=== PATIENT | female | born 1985 | race Caucasian/White ===

== ENCOUNTER 2016-10-03 11:33 | Emergency (ER) | payer BC ==
[~2016-10-03 11:33] MED LIST: ACET50TA PO; COLA100C PO; DOCU10CA PO; IBUP80TA PO; MOM30SS PO; VITAPRTA PO
[2016-10-03] MEDS ORDERED: KETOROLAC 30 MG/ML VIAL (J1885) As Ordered ONE (12:22)
--- NOTE | 2016-10-03 12:59 | REP ---
CT of the brain without IV contrast: Comparison is 05/11/2013. There is no subdural or epidural hematoma. There is no hemorrhage, edema, mass effect or midline shift. Ventricles are normal size and midline. The visualized paranasal sinuses and mastoids are unremarkable. Impression: Negative CT study of the brain. There is no change from the comparison study. Signed by Wilfredo Swanson MD 10/03/2016 12:50 P
--- NOTE | 2016-10-03 13:16 | REP ---
CT CERVICAL SPINE WITHOUT CONTRAST: 10/03/2016. Clinical history: Trauma with neck injury. Findings: A comparison CT neck from 05/10/2014 reviewed. Trauma protocol was followed. There is some loss of the normal cervical lordosis which may be due to spasm or positioning. The dens shows normal relationship between the anterior arch and lateral masses of T1. There is no fracture. Craniocervical junction intact. Disc space and vertebral body heights are intact. No malalignment. No central canal stenosis. Foramina are adequate. The spinous processes, lamina, facets, transverse processes and transverse foramina were intact. Medial clavicles intact. Lung apices and the visualized upper thoracic levels and first two ribs seen were unremarkable. Impression: 1. Straightening of the spine which may be due to spasm or positioning but no spinal or foraminal stenosis, compression, malalignment or other acute finding. Signed by Quinten Iglesias MD 10/03/2016 04:44 P
--- NOTE | 2016-10-03 13:25 | REP ---
RIGHT SCAPULA SERIES COMPLETE: 10/03/2016. Clinical history: Right scapular pain, trauma. Findings: There were no prior pertinent studies. The two views show the acromion and coracoid grossly intact. The AC joint and clavicle unremarkable. The glenohumeral joint and humeral head were preserved. The scapular body and blade were unremarkable. Impression: 1. No visible or displaced fracture of the scapula. AC and glenohumeral joints grossly intact as are the adjacent ribs. Signed by Quinten Iglesias MD 10/03/2016 04:45 P
--- NOTE | 2016-10-03 13:54 | EDDOCDS ---
Physician Documentation [facility] Name: Rosibel Jackson Age: 31 yrs Sex: Female : 1985 Arrival Date: 10/03/2016 Time: 11:33 Bed PR Private MD: No Pcp Disposition: 10/03/16 13:39 Discharged to Home/Self Care. Impression: Contusion of right shoulder - SCAPULA, Concussion without loss of consciousness. - Condition is Stable. - Discharge Instructions: Concussion, Adult. - Prescriptions for Naprosyn 500 mg Oral Tablet - take 1 tablet by ORAL route every 12 hours As needed take with food; 30 tablet. Cyclobenzaprine 10 mg Oral Tablet - take 1 tablet by ORAL route at bedtime As needed; 15 tablet. - Work Release Form - 1 day, Medication Reconciliation, Local Pharmacy Hours form. - Follow up: Emergency Department; When: As needed; Reason: Worsening of conditions. [facility]; When: Call to arrange an appointment; Reason: Recheck today's complaints, Continuance of care, To establish care. - Problem is new. - Symptoms are unchanged. Historical: - Allergies: PENICILLINS; - Home Meds: 1. Vitamin Oral tab 1 tab once daily - PMHx: none; - PSHx: Cholecystectomy; Appendectomy; - Social history: Smoking status: Patient states former smoker of tobacco. No barriers to communication noted, The patient speaks fluent [place] Zealander, Speaks appropriately for age. - Family history: Not pertinent. - : The pt / caregiver states he / she is not on anticoagulants. Home medication list is obtained from the patient. - Exposure Risk Screening:: None identified. 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 4 in. (162.56 cm) (R); Pain 5/10; 13:45 BP 114 / 61; Pulse 67; Resp 18; Temp 97.7(T); Pulse Ox 97% on R/A; Pain 6/10; nb2 11:36 Body Mass Index 29.18 (77.11 kg, 162.56 cm) jrd MDM: 12:21 ketorolac 60 mg IM once ordered. dt4 12:23 Scapula X-Ray Ordered. EDMS 12:23 CT Head Without Contrast Ordered. EDMS 12:23 CT Spine,Cervical W/o Contrast Ordered. EDMS 12:28 Financial registration complete. mm15 Administered Medications: 12:26 Drug: ketorolac 60 mg [ketorolac 30 mg/mL (1 mL) injection solution (2 mL)] Route: IM; ck1 Site: right gluteus; Signatures: Dispatcher [employer] EDMS Melissa PittmanRN RN ck1 Tanya Nation RN RN jo3 Yeny Gilbert mm15 Chiara Dale PA-C PA-C dt4 Albert Silver,RN RN jf3 The chart was reviewed and I authenticate all verbal orders and agree with the evaluation and treatment provided.Corrections: (The following items were deleted from the chart) 11:43 11:43 Social history Smoking status: Patient states was never smoker of tobacco. No jo3 barriers to communication noted, The patient speaks fluent [place], Speaks appropriately for age, jo3 MTDD
--- NOTE | 2016-10-03 13:55 | EDDOCDS ---
Nurse's Notes [facility] Name: Rosibel Jackson Age: 31 yrs Sex: Female : 1985 Arrival Date: 10/03/2016 Time: 11:33 Bed PR Private MD: No Pcp Diagnosis: Contusion of right shoulder-SCAPULA;Concussion without loss of consciousness Presentation: 10/03 11:40 Presenting complaint: Patient states: Mechanical fall in the middle of the night. Has jo3 pain to right shoulder and lateral neck bilaterally. Denies spine tenderness. Adult Sepsis Screening: The patient does not have new or worsening altered mentation. Patient's respiratory rate is less than 22. Systolic blood pressure is greater than 100. Patient has a qSOFA score of 0- Negative Sepsis Screen. Suicide/Homicide risk assessment- the patient denies having any suicidal and/or homicidal ideations and does not present with any other emotional, behavioral or mental health complaints. Status: Patient is not a sales and service associate or dependent. Transition of care: patient was not received from another setting of care. 11:40 Acuity: SÁNCHEZ Level 4 jo3 11:40 Method Of Arrival: Walkin/Carried/Asstd jo3 Triage Assessment: 11:43 General: Appears in no apparent distress, comfortable, Behavior is appropriate for age, jo3 cooperative, pleasant. HIV screening NA for this visit Offered previously. Neurological: Oriented to person, place, time. Respiratory: Airway is patent Respiratory effort is even, unlabored. Derm: Skin is pink, warm & dry. 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 Vitamin Oral tab 1 tab once daily - PMHx: none; - PSHx: Cholecystectomy; Appendectomy; - Social history: Smoking status: Patient states former smoker of tobacco. No barriers to communication noted, The patient speaks fluent Nigerian, Speaks appropriately for age. - Family history: Not pertinent. - : The pt / caregiver states he / she is not on anticoagulants. Home medication list is obtained from the patient. - Exposure Risk Screening:: None identified. Screenin:29 Screening information is obtained from the patient. Fall risk: No risks identified. ck1 Assistance ADL's: requires no assistance with activities of daily living. Abuse/DV Screen: The patient / caregiver reports he/she is: not in a situation that causes fear, pain or injury. Nutritional screening: No deficits noted. Advance Directives: Currently, there is no health care proxy. home support is adequate. Assessment: 12:29 General: Appears in no apparent distress, comfortable, Behavior is appropriate for age, ck1 cooperative. Pain: Location: right trapezius and right scapular area Pain currently is 9 out of 10 on a pain scale. Neurological: Level of Consciousness is awake, alert, obeys commands, Oriented to person, place, time. Derm: Skin is intact, is healthy with good turgor, Skin is pink, warm & dry. Musculoskeletal: Circulation, motion, and sensation intact Range of motion intact in all extremities. 13:50 General: Appears in no apparent distress, comfortable, Behavior is cooperative. Pain: jf3 Pain currently is 6 out of 10 on a pain scale. Neurological: Level of Consciousness is awake, alert, Oriented to person, place, time. Cardiovascular: Capillary refill < 3 seconds. Respiratory: Airway is patent Respiratory effort is even, unlabored, Respiratory pattern is regular, symmetrical. Derm: Skin is pink, warm & dry. Vital Signs: 11:36 BP 126 / 70 RA Sitting (auto/reg); Pulse 73; Resp 16; Temp 99.0(O); Pulse Ox 98% on jrd R/A; Weight 77.11 kg (R); Height 5 ft. 4 in. (162.56 cm) (R); Pain 5/10; 13:45 BP 114 / 61; Pulse 67; Resp 18; Temp 97.7(T); Pulse Ox 97% on R/A; Pain 6/10; nb2 11:36 Body Mass Index 29.18 (77.11 kg, 162.56 cm) [facility] Vitals: 11:36 Log In Time: October 03, 2016 at 11:13. [facility] ED Course: 11:35 Patient visited by Jeet Moffett PCA. jrd 11:35 Patient moved to Waiting jrd 11:36 No Pcp is Private Physician. jrd 11:37 Patient visited by Jeet Moffett PCA. jrd 11:37 Patient moved to Pre RCE jrd 11:42 Triage Initiated jo3 11:45 Patient visited by Tanya Nation RN. jo3 11:58 Patient moved to Triage 3 nb2 12:06 [facility] dt4 12:06 Sukhdeep Allison MD is Attending Physician. dt4 12:06 Patient visited by Chiara Dale PA-C. dt4 12:26 Patient visited by Melissa Pittman RN. ck1 12:26 Patient moved to TR2 ck1 12:30 The patient / caregiver is instructed regarding the plan of care and ED course. ck1 13:21 CT Head Without Contrast Returned. EDMS 13:21 CT Spine,Cervical W/o Contrast Returned. EDMS 13:28 Patient moved to PR2 / nb2 13:32 Patient visited by Alis Madera. nb2 13:37 [facility] is Referral Physician. dt4 13:45 Patient visited by Alis Madera. nb2 13:50 No IV's were initiated during this patient's visit. No procedures done that require jf3 assistance. Administered Medications: 12:26 Drug: ketorolac 60 mg [ketorolac 30 mg/mL (1 mL) injection solution (2 mL)] Route: IM; ck1 Site: right gluteus; Order Results: Radiology Order: CT Head Without Contrast Test: CT Head Without Contrast REASON FOR EXAMINATION: HEAD INJURY; CT of the brain without IV contrast:; ; Comparison is 05/11/2013.; ; There is no subdural or epidural hematoma. There is no hemorrhage, edema, mass; effect or midline shift. Ventricles are normal size and midline.; ; The visualized paranasal sinuses and mastoids are unremarkable.; ; Impression:; ; Negative CT study of the brain.; ; There is no change from the comparison study.; ; ; Signed by; Wilfredo Swanson MD 10/03/2016 12:50 P; Radiology Order: CT Spine,Cervical W/o Contrast Test: CT Spine,Cervical W/o Contrast REASON FOR EXAMINATION: HEAD/NECK INJURY; CT CERVICAL SPINE WITHOUT CONTRAST: 10/03/2016.; ; Clinical history: Trauma with neck injury.; ; Findings: A comparison CT neck from 05/10/2014 reviewed. Trauma protocol was; followed. There is some loss of the normal cervical lordosis which may be due to; spasm or positioning. The dens shows normal relationship between the anterior; arch and lateral masses of T1. There is no fracture. Craniocervical junction; intact. Disc space and vertebral body heights are intact. No malalignment. No; central canal stenosis. Foramina are adequate. The spinous processes, lamina,; facets, transverse processes and transverse foramina were intact. Medial; clavicles intact. Lung apices and the visualized upper thoracic levels and first; two ribs seen were unremarkable.; ; Impression:; ; 1. Straightening of the spine which may be due to spasm or positioning but no; spinal or foraminal stenosis, compression, malalignment or other acute finding.; ; ; ; ; ; ; Unreviewed; Outcome: 13:39 Discharge ordered by Provider. dt4 13:51 Discharge Assessment: patient administered narcotics - no. The following High Risk jf3 Discharge criteria are identified: None. Discharged to home ambulatory. Condition: good. Discharge instructions given to patient, Instructed on discharge instructions, follow up and referral plans. medication usage, no driving heavy equipment, Demonstrated understanding of instructions, medications, Pt was receptive of discharge instructions/ teaching. No special radiology studies were completed. Property :Personal belongings accompany Pt. 13:53 Patient left the ED. jf3 Signatures: Dispatcher [employer] EDMS Melissa PittmanRN RN ck1 Tanya NationRN RN la3 Chiara Dale, PALiana PAMegC dt4 Jeet Moffett, MARCK MANAGER OF OPERATIONS Albert Wilburn,RN RN jf3 Alis Madera nb2 Corrections: (The following items were deleted from the chart) 11:43 11:43 Social history Smoking status: Patient states was never smoker of tobacco. No jo3 barriers to communication noted, The patient speaks fluent Nigerian, Speaks appropriately for age, jo3 MTDD
--- NOTE | 2016-10-05 14:55 | EDDOCDS ---
Nurse's Notes [facility] Name: Rosibel Jackson Age: 31 yrs Sex: Female : 1985 Arrival Date: 10/03/2016 Time: 11:33 Bed PR Private MD: No Pcp Diagnosis: Contusion of right shoulder-SCAPULA;Concussion without loss of consciousness Presentation: 10/03 11:40 Presenting complaint: Patient states: Mechanical fall in the middle of the night. Has jo3 pain to right shoulder and lateral neck bilaterally. Denies spine tenderness. Adult Sepsis Screening: The patient does not have new or worsening altered mentation. Patient's respiratory rate is less than 22. Systolic blood pressure is greater than 100. Patient has a qSOFA score of 0- Negative Sepsis Screen. Suicide/Homicide risk assessment- the patient denies having any suicidal and/or homicidal ideations and does not present with any other emotional, behavioral or mental health complaints. 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 Transition of care: patient was not received from another setting of care. 11:40 Acuity: SÁNCHEZ Level 4 jo3 11:40 Method Of Arrival: Walkin/Carried/Asstd jo3 Triage Assessment: 11:43 General: Appears in no apparent distress, comfortable, Behavior is appropriate for age, jo3 cooperative, pleasant. HIV screening NA for this visit Offered previously. Neurological: Oriented to person, place, time. Respiratory: Airway is patent Respiratory effort is even, unlabored. Derm: Skin is pink, warm & dry. 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 Vitamin Oral tab 1 tab once daily - PMHx: none; - PSHx: Cholecystectomy; Appendectomy; - Social history: Smoking status: Patient states former smoker of tobacco. No barriers to communication noted, The patient speaks fluent Welsh, Speaks appropriately for age. - Family history: Not pertinent. - : The pt / caregiver states he / she is not on anticoagulants. Home medication list is obtained from the patient. - Exposure Risk Screening:: None identified. Screenin:29 Screening information is obtained from the patient. Fall risk: No risks identified. ck1 Assistance ADL's: requires no assistance with activities of daily living. Abuse/DV Screen: The patient / caregiver reports he/she is: not in a situation that causes fear, pain or injury. Nutritional screening: No deficits noted. Advance Directives: Currently, there is no health care proxy. home support is adequate. Assessment: 12:29 General: Appears in no apparent distress, comfortable, Behavior is appropriate for age, ck1 cooperative. Pain: Location: right trapezius and right scapular area Pain currently is 9 out of 10 on a pain scale. Neurological: Level of Consciousness is awake, alert, obeys commands, Oriented to person, place, time. Derm: Skin is intact, is healthy with good turgor, Skin is pink, warm & dry. Musculoskeletal: Circulation, motion, and sensation intact Range of motion intact in all extremities. 13:50 General: Appears in no apparent distress, comfortable, Behavior is cooperative. Pain: jf3 Pain currently is 6 out of 10 on a pain scale. Neurological: Level of Consciousness is awake, alert, Oriented to person, place, time. Cardiovascular: Capillary refill < 3 seconds. Respiratory: Airway is patent Respiratory effort is even, unlabored, Respiratory pattern is regular, symmetrical. Derm: Skin is pink, warm & dry. Vital Signs: 11:36 BP 126 / 70 RA Sitting (auto/reg); Pulse 73; Resp 16; Temp 99.0(O); Pulse Ox 98% on jrd R/A; Weight 77.11 kg (R); Height 5 ft. 4 in. (162.56 cm) (R); Pain 5/10; 13:45 BP 114 / 61; Pulse 67; Resp 18; Temp 97.7(T); Pulse Ox 97% on R/A; Pain 6/10; nb2 11:36 Body Mass Index 29.18 (77.11 kg, 162.56 cm) [facility] Vitals: 11:36 Log In Time: October 03, 2016 at 11:13. [facility] ED Course: 11:35 Patient visited by Jeet Moffett PCA. jrd 11:35 Patient moved to Waiting jrd 11:36 No Pcp is Private Physician. jrd 11:37 Patient visited by Jeet Moffett PCA. jrd 11:37 Patient moved to Pre RCE jrd 11:42 Triage Initiated jo3 11:45 Patient visited by Tanya Nation RN. jo3 11:58 Patient moved to Triage 3 nb2 12:06 Chiara Dale PA-C [facility]. dt4 12:06 Sukhdeep Allison MD is Attending Physician. dt4 12:06 Patient visited by Chiara Dale PA-C. dt4 12:26 Patient visited by Melissa Pittman RN. ck1 12:26 Patient moved to TR2 ck1 12:30 The patient / caregiver is instructed regarding the plan of care and ED course. ck1 13:21 CT Head Without Contrast Returned. EDMS 13:21 CT Spine,Cervical W/o Contrast Returned. EDMS 13:28 Patient moved to PR2 / nb2 13:32 Patient visited by Alis Madera. nb2 13:37 [facility] is Referral Physician. dt4 13:45 Patient visited by Alis Madera. nb2 13:50 No IV's were initiated during this patient's visit. No procedures done that require jf3 assistance. 14:15 [facility] Payment Agreement was scanned into [employer] and attached to record. mm15 14:18 Scapula X-Ray Returned. EDMS 14:55 T-Sheet-- Draft Copy was scanned into [employer] and attached to record. gb 14:55 Radiology Report was scanned into [employer] and attached to record. gb 14:56 Patient name changed from Rosibel\S\\S\Benthal\S\ to Rosibel\S\ \S\Benthal. EDMS Administered Medications: 12:26 Drug: ketorolac 60 mg [ketorolac 30 mg/mL (1 mL) injection solution (2 mL)] Route: IM; ck1 Site: right gluteus; Order Results: Radiology Order: CT Head Without Contrast Test: CT Head Without Contrast REASON FOR EXAMINATION: HEAD INJURY; CT of the brain without IV contrast:; ; Comparison is 05/11/2013.; ; There is no subdural or epidural hematoma. There is no hemorrhage, edema, mass; effect or midline shift. Ventricles are normal size and midline.; ; The visualized paranasal sinuses and mastoids are unremarkable.; ; Impression:; ; Negative CT study of the brain.; ; There is no change from the comparison study.; ; ; Signed by; Wilfredo Swanson MD 10/03/2016 12:50 P; Radiology Order: CT Spine,Cervical W/o Contrast Test: CT Spine,Cervical W/o Contrast REASON FOR EXAMINATION: HEAD/NECK INJURY; CT CERVICAL SPINE WITHOUT CONTRAST: 10/03/2016.; ; Clinical history: Trauma with neck injury.; ; Findings: A comparison CT neck from 05/10/2014 reviewed. Trauma protocol was; followed. There is some loss of the normal cervical lordosis which may be due to; spasm or positioning. The dens shows normal relationship between the anterior; arch and lateral masses of T1. There is no fracture. Craniocervical junction; intact. Disc space and vertebral body heights are intact. No malalignment. No; central canal stenosis. Foramina are adequate. The spinous processes, lamina,; facets, transverse processes and transverse foramina were intact. Medial; clavicles intact. Lung apices and the visualized upper thoracic levels and first; two ribs seen were unremarkable.; ; Impression:; ; 1. Straightening of the spine which may be due to spasm or positioning but no; spinal or foraminal stenosis, compression, malalignment or other acute finding.; ; ; ; ; Signed by; Quinten Iglesias MD 10/03/2016 04:44 P; Radiology Order: Scapula X-Ray Test: Scapula X-Ray REASON FOR EXAMINATION: RIGHT SCAPULAR PAIN/INJURY; RIGHT SCAPULA SERIES COMPLETE: 10/03/2016.; ; Clinical history: Right scapular pain, trauma.; ; Findings: There were no prior pertinent studies. The two views show the; acromion and coracoid grossly intact. The AC joint and clavicle unremarkable.; The glenohumeral joint and humeral head were preserved. The scapular body and; blade were unremarkable.; ; Impression:; ; 1. No visible or displaced fracture of the scapula. AC and glenohumeral joints; grossly intact as are the adjacent ribs.; ; ; Signed by; Quinten Iglesias MD 10/03/2016 04:45 P; Outcome: 13:39 Discharge ordered by Provider. dt4 13:51 Discharge Assessment: patient administered narcotics - no. The following High Risk jf3 Discharge criteria are identified: None. Discharged to home ambulatory. Condition: good. Discharge instructions given to patient, Instructed on discharge instructions, follow up and referral plans. medication usage, no driving heavy equipment, Demonstrated understanding of instructions, medications, Pt was receptive of discharge instructions/ teaching. No special radiology studies were completed. Property :Personal belongings accompany Pt. 13:53 Patient left the ED. jf3 Signatures: Dispatcher [employer] EDMS Shandra Finley, Reg Reg Melissa Blanco,RN RN ck1 Tanya Nation,RN RN jo3 Yeny Gilbert mm15 Chiara Dale, PA-C PA-C dt4 Jeet Moffett PCA GEAR GENERATOR SET UP OPERATOR d Albert Silver,LORNA RN gerard3 Alis Madera2 Corrections: (The following items were deleted from the chart) 11:43 11:43 Social history Smoking status: Patient states was never smoker of tobacco. No jo3 barriers to communication noted, The patient speaks fluent Welsh, Speaks appropriately for age, jo3 Chart Complete MTDD
--- NOTE | 2016-10-05 14:55 | EDDOCDS ---
Physician Documentation [facility] Name: Rosibel Jackson Age: 31 yrs Sex: Female : 1985 Arrival Date: 10/03/2016 Time: 11:33 Bed PR Private MD: No Pcp Disposition: 10/03/16 13:39 Discharged to Home/Self Care. Impression: Contusion of right shoulder - SCAPULA, Concussion without loss of consciousness. - Condition is Stable. - Discharge Instructions: Concussion, Adult. - Prescriptions for Naprosyn 500 mg Oral Tablet - take 1 tablet by ORAL route every 12 hours As needed take with food; 30 tablet. Cyclobenzaprine 10 mg Oral Tablet - take 1 tablet by ORAL route at bedtime As needed; 15 tablet. - Work Release Form - 1 day, Medication Reconciliation, Local Pharmacy Hours form. - Follow up: Emergency Department; When: As needed; Reason: Worsening of conditions. Follow [facility]: [facility]; When: Call to arrange an appointment; Reason: Recheck today's complaints, Continuance of care, To establish care. - Problem is new. - Symptoms are unchanged. Historical: - Allergies: PENICILLINS; - Home Meds: 1. Vitamin Oral tab 1 tab once daily - PMHx: none; - PSHx: Cholecystectomy; Appendectomy; - Social history: Smoking status: Patient states former smoker of tobacco. No barriers to communication noted, The patient speaks fluent Japanese, Speaks appropriately for age. - Family history: Not pertinent. - : The pt / caregiver states he / she is not on anticoagulants. Home medication list is obtained from the patient. - Exposure Risk Screening:: None identified. 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 4 in. (162.56 cm) (R); Pain 5/10; 13:45 BP 114 / 61; Pulse 67; Resp 18; Temp 97.7(T); Pulse Ox 97% on R/A; Pain 6/10; nb2 11:36 Body Mass Index 29.18 (77.11 kg, 162.56 cm) jrd MDM: 12:21 ketorolac 60 mg IM once ordered. dt4 12:23 Scapula X-Ray Ordered. EDMS 12:23 CT Head Without Contrast Ordered. EDMS 12:23 CT Spine,Cervical W/o Contrast Ordered. EDMS 12:28 Financial registration complete. mm15 14:15 [facility] Payment Agreement was scanned into [employer] and attached to record. mm15 14:55 T-Sheet-- Draft Copy was scanned into [employer] and attached to record. gb 14:55 Radiology Report was scanned into [employer] and attached to record. gb Administered Medications: 12:26 Drug: ketorolac 60 mg [ketorolac 30 mg/mL (1 mL) injection solution (2 mL)] Route: IM; ck1 Site: right gluteus; Signatures: Dispatcher [employer] EDMS Shandra Finley, Reg Reg gb Melissa Pittman RN RN ck1 Tanya Nation RN RN jo3 Yeny Gilbert mm15 Chiara Dale, PA-Luiza PA-C dt4 Albert Silver,RN RN jf3 The chart was reviewed and I authenticate all verbal orders and agree with the evaluation and treatment provided.Corrections: (The following items were deleted from the chart) 11:43 11:43 Social history Smoking status: Patient states was never smoker of tobacco. No jo3 barriers to communication noted, The patient speaks fluent Japanese, Speaks appropriately for age, jo3 Attachments: :15 [facility] Payment Agreement mm15 14:55 T-Sheet-- Draft Copy gb Chart Complete MTDD
--- NOTE | 2016-10-05 14:55 | EDDOCDS ---
Physician Documentation [facility] Name: Rosibel Jackson Age: 31 yrs Sex: Female : 1985 Arrival Date: 10/03/2016 Time: 11:33 Bed PR Private MD: No Pcp Disposition: 10/03/16 13:39 Discharged to Home/Self Care. Impression: Contusion of right shoulder - SCAPULA, Concussion without loss of consciousness. - Condition is Stable. - Discharge Instructions: Concussion, Adult. - Prescriptions for Naprosyn 500 mg Oral Tablet - take 1 tablet by ORAL route every 12 hours As needed take with food; 30 tablet. Cyclobenzaprine 10 mg Oral Tablet - take 1 tablet by ORAL route at bedtime As needed; 15 tablet. - Work Release Form - 1 day, Medication Reconciliation, Local Pharmacy Hours form. - Follow up: Emergency Department; When: As needed; Reason: Worsening of conditions. Follow up: [facility]; When: Call to arrange an appointment; Reason: Recheck today's complaints, Continuance of care, To establish care. - Problem is new. - Symptoms are unchanged. Historical: - Allergies: PENICILLINS; - Home Meds: 1. Vitamin Oral tab 1 tab once daily - PMHx: none; - PSHx: Cholecystectomy; Appendectomy; - Social history: Smoking status: Patient states former smoker of tobacco. No barriers to communication noted, The patient speaks fluent Malawian, Speaks appropriately for age. - Family history: Not pertinent. - : The pt / caregiver states he / she is not on anticoagulants. Home medication list is obtained from the patient. - Exposure Risk Screening:: None identified. 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 4 in. (162.56 cm) (R); Pain 5/10; 13:45 BP 114 / 61; Pulse 67; Resp 18; Temp 97.7(T); Pulse Ox 97% on R/A; Pain 6/10; nb2 11:36 Body Mass Index 29.18 (77.11 kg, 162.56 cm) jrd MDM: 12:21 ketorolac 60 mg IM once ordered. dt4 12:23 Scapula X-Ray Ordered. EDMS 12:23 CT Head Without Contrast Ordered. EDMS 12:23 CT Spine,Cervical W/o Contrast Ordered. EDMS 12:28 Financial registration complete. mm15 14:15 [facility] Payment Agreement was scanned into [employer] and attached to record. mm15 14:55 T-Sheet-- Draft Copy was scanned into [employer] and attached to record. gb 14:55 Radiology Report was scanned into [employer] and attached to record. gb Administered Medications: 12:26 Drug: ketorolac 60 mg [ketorolac 30 mg/mL (1 mL) injection solution (2 mL)] Route: IM; ck1 Site: right gluteus; Signatures: Dispatcher [employer] EDMS Shandra Finley, Reg Reg gb Melissa Pittman RN RN ck1 Tanya Nation RN RN jo3 Yeny Gilbert mm15 Chiara Dale, PA-Luiza PA-C dt4 Albert Silver,RN RN jf3 The chart was reviewed and I authenticate all verbal orders and agree with the evaluation and treatment provided.Corrections: (The following items were deleted from the chart) 11:43 11:43 Social history Smoking status: Patient states was never smoker of tobacco. No jo3 barriers to communication noted, The patient speaks fluent Malawian, Speaks appropriately for age, jo3 Attachments: :15 [facility] Payment Agreement mm15 14:55 T-Sheet-- Draft Copy gb Chart Complete MTDD
== END 2016-10-03 13:53 | disposition home or self-care (01) ==
LOC: M ED 11:33
DX: S40.011A Contusion of right shoulder, initial encounter (principal); S16.1XXA Strain of muscle, fascia and tendon at neck level, initial encounter; S06.0X0A Concussion without loss of consciousness, initial encounter; W19.XXXA Unspecified fall, initial encounter; Y92.89 Other specified places as the place of occurrence of the external cause; Y93.F9 Activity, other caregiving; Y99.8 Other external cause status; Z87.891 Personal history of nicotine dependence; Z88.0 Allergy status to penicillin
CPT/HCPCS: 70450; 72125; 73010; 96372; 99283; J1885

== ENCOUNTER 2016-10-19 15:42 | Emergency (ER) | payer BC ==
--- NOTE | 2016-10-19 16:40 | EDDOCDS ---
Nurse's Notes [facility] Name: Rosibel Jackson Age: 31 yrs Sex: Female : 1985 Arrival Date: 10/19/2016 Time: 15:42 Bed Triage 3 Private MD: NO PRIMARY PHYSICIAN, . Diagnosis: Labyrinthitis, bilateral;Acute serous otitis media, bilateral Presentation: 10/19 15:48 Presenting complaint: Patient states: Was at [facility] for regular visit today. Was ld5 discussing symptoms she was having with MD and was told to come to ER as soon as possible to be checked for vertigo. Pt reports dizziness, vomiting, "I feel intoxicated", and pressure to forehead since Saturday. Pt reports being here 2 weeks ago for a concussion. Adult Sepsis Screening: The patient does not have new or worsening altered mentation. Patient's respiratory rate is less than 22. Systolic blood pressure is greater than 100. Patient has a qSOFA score of 0- Negative Sepsis Screen. 15:48 Acuity: SÁNCHEZ Level 3 ld5 15:50 Suicide/Homicide risk assessment- the patient denies having any suicidal and/or ld5 homicidal ideations and does not present with any other emotional, behavioral or mental health complaints. Status: Patient is not a furniture servicer or dependent. Transition of care: patient was not received from another setting of care. 15:50 Method Of Arrival: Walkin/Carried/Asstd ld5 Triage Assessment: 15:51 General: Appears in no apparent distress, Behavior is cooperative, flat. Pain: ld5 Location: forehead Quality of pain is described as pressure. HIV screening NA for this visit Offered previously. Neurological: Level of Consciousness is awake, obeys commands, Reports dizziness. Respiratory: Airway is patent Respiratory effort is even, unlabored. GI: Reports nausea, vomiting. [facility]: 15:51 LMP N/A - control method, Mirena placed September 06, has had period since then ld5 Historical: - Allergies: PENICILLINS; - Home Meds: 1. none - PMHx: none; - PSHx: Cholecystectomy; Appendectomy; - Social history: Smoking status: Patient states former smoker of tobacco. No barriers to communication noted, The patient speaks fluent Persian, Speaks appropriately for age. - Family history: Not pertinent. - : The pt / caregiver states he / she is not on anticoagulants. Home medication list is obtained from the patient. - Exposure Risk Screening:: None identified. Screenin:49 Infection Control. gr2 16:38 Screening information is obtained from the patient. Fall risk: No risks identified. ttb Assistance ADL's: requires no assistance with activities of daily living. Abuse/DV Screen: The patient / caregiver reports he/she is: not in a situation that causes fear, pain or injury. Nutritional screening: No deficits noted. Advance Directives: Currently, there is no health care proxy. home support is adequate. Assessment: 16:38 General: Appears in no apparent distress, uncomfortable, well nourished, well groomed, ttb Behavior is appropriate for age, cooperative, pleasant. Neurological: Level of Consciousness is awake, alert, Moves all extremities. Gait is steady, Speech is normal, Facial symmetry appears normal, Reports dizziness. Respiratory: No deficits noted. Airway is patent. GI: Reports nausea, vomiting. Derm: Skin is normal. Vital Signs: 15:44 BP 111 / 74; Pulse 92; Resp 18 S; Temp 97.1(O); Pulse Ox 99% on R/A; Weight 78.02 kg gr2 (R); Height 5 ft. 4 in. (162.56 cm) (R); Pain 2/10; 15:44 Body Mass Index 29.52 (78.02 kg, 162.56 cm) gr2 Vitals: 15:44 Log In Time: October 19, 2016 at 15:44. gr2 ED Course: 15:44 Patient visited by Bibiana Blanc. gr2 15:44 Radha [facility] is Private Physician. gr2 15:44 NO PRIMARY PHYSICIAN, . is Private Physician. gr2 15:44 Patient moved to Waiting gr2 15:46 Patient visited by Bibiana Blanc. gr2 15:46 Patient moved to Pre RCE gr2 15:49 Patient visited by Bibiana Blanc. gr2 15:50 Triage Initiated ld5 15:52 Patient visited by Cate Mckeon RN. ld5 16:02 Patient moved to Triage 3 ttb 16:05 Randy Goode PA is PHCP. btw 16:05 Chandrika Pena MD is Attending Physician. btw 16:05 Patient visited by Randy Goode PA. btw 16:31 Kristine Anderson MD is Referral Physician. btw 16:38 The patient / caregiver is instructed regarding the plan of care and ED course. Patient ttb has correct armband on for positive identification. 16:38 No IV's were initiated during this patient's visit. No procedures done that require ttb assistance. Order Results: There are currently no results for this order. Outcome: 16:32 Discharge ordered by Provider. btw 16:38 Discharge Assessment: Patient awake, alert and oriented x 3. No cognitive and/or ttb functional deficits noted. Patient verbalized understanding of disposition instructions. Patient awake and alert. patient administered narcotics - no. The following High Risk Discharge criteria are identified: None. Discharged to home ambulatory. Condition: stable Condition: improved. Discharge instructions given to patient, Instructed on discharge instructions, follow up and referral plans. medication usage, Demonstrated understanding of instructions, medications, Pt was receptive of discharge instructions/ teaching. Prescriptions given X 2. No special radiology studies were completed. Property :Personal belongings accompany Pt. 16:39 Patient left the ED. ttb Signatures: Randy Goode PA PA btw Cate Mckeon,RN RN ld5 Pepper Hancock RN RN ttb Bibiana Blanc gr2 Corrections: (The following items were deleted from the chart) 15:50 15:48 Presenting complaint: Patient states: Was at [facility] for regular visit today. Was ld5 discussing symptoms she was having with MD and was told to come to ER as soon as possible to be checked for vertigo. Pt reports dizziness, vomiting, "I feel intoxicated", and pressure to forehead since Saturday ld5 MTDD
--- NOTE | 2016-10-19 16:40 | EDDOCDS ---
Physician Documentation [facility] Name: Rosibel Jackson Age: 31 yrs Sex: Female : 1985 Arrival Date: 10/19/2016 Time: 15:42 Bed Triage 3 Private MD: NO PRIMARY PHYSICIAN, . Disposition: 10/19/16 16:32 Discharged to Home/Self Care. Impression: Labyrinthitis, bilateral, Acute serous otitis media, bilateral. - Condition is Stable. - Discharge Instructions: Serous Otitis Media, Labyrinthitis, [id number]. - Prescriptions for Medrol (Arturo) 4 mg Oral Tablets, Dose Pack - take 1 Pack by ORAL route as directed - follow package instructions; 1 packet. azelastine 137 mcg (0.1 %) Nasal Aerosol, [place] - spray 2 spray by INTRANASAL route 2 times per day each nostril; 1 bottle. - Medication Reconciliation, Local Pharmacy Hours form. - Follow up: Kristine Anderson MD; When: Call to arrange an appointment; Reason: Further diagnostic work-up, Recheck today's complaints, Continuance of care. - Problem is new. - Symptoms are unchanged. Historical: - Allergies: PENICILLINS; - Home Meds: 1. none - PMHx: none; - PSHx: Cholecystectomy; Appendectomy; - Social history: Smoking status: Patient states former smoker of tobacco. No barriers to communication noted, The patient speaks fluent Wolof, Speaks appropriately for age. - Family history: Not pertinent. - : The pt / caregiver states he / she is not on anticoagulants. Home medication list is obtained from the patient. - Exposure Risk Screening:: None identified. 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 4 in. (162.56 cm) (R); Pain 2/10; 15:44 Body Mass Index 29.52 (78.02 kg, 162.56 cm) gr2 Signatures: Randy oGode PA PA chazw Cate Mckeon,RN RN ld5 Pepper Hancock, RN RN ttb CARRINGTOND
--- NOTE | 2016-10-21 17:40 | EDDOCDS ---
Nurse's Notes [facility] Name: Rosibel Jackson Age: 31 yrs Sex: Female : 1985 Arrival Date: 10/19/2016 Time: 15:42 Bed Triage 3 Private MD: NO PRIMARY PHYSICIAN, . Diagnosis: Labyrinthitis, bilateral;Acute serous otitis media, bilateral Presentation: 10/19 15:48 Presenting complaint: Patient states: Was at [facility] for regular visit today. Was ld5 discussing symptoms she was having with MD and was told to come to ER as soon as possible to be checked for vertigo. Pt reports dizziness, vomiting, "I feel intoxicated", and pressure to forehead since Saturday. Pt reports being here 2 weeks ago for a concussion. Adult Sepsis Screening: The patient does not have new or worsening altered mentation. Patient's respiratory rate is less than 22. Systolic blood pressure is greater than 100. Patient has a qSOFA score of 0- Negative Sepsis Screen. 15:48 Acuity: SÁNCHEZ Level 3 ld5 15:50 Suicide/Homicide risk assessment- the patient denies having any suicidal and/or ld5 homicidal ideations and does not present with any other emotional, behavioral or mental health complaints. 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 Transition of care: patient was not received from another setting of care. 15:50 Method Of Arrival: Walkin/Carried/Asstd ld5 Triage Assessment: 15:51 General: Appears in no apparent distress, Behavior is cooperative, flat. Pain: ld5 Location: forehead Quality of pain is described as pressure. HIV screening NA for this visit Offered previously. Neurological: Level of Consciousness is awake, obeys commands, Reports dizziness. Respiratory: Airway is patent Respiratory effort is even, unlabored. GI: Reports nausea, vomiting. [facility]: 15:51 LMP N/A - control method, Mirena placed September 06, has had period since then ld5 Historical: - Allergies: PENICILLINS; - Home Meds: 1. none - PMHx: none; - PSHx: Cholecystectomy; Appendectomy; - Social history: Smoking status: Patient states former smoker of tobacco. No barriers to communication noted, The patient speaks fluent Kyrgyz, Speaks appropriately for age. - Family history: Not pertinent. - : The pt / caregiver states he / she is not on anticoagulants. Home medication list is obtained from the patient. - Exposure Risk Screening:: None identified. Screenin:49 Infection Control. gr2 16:38 Screening information is obtained from the patient. Fall risk: No risks identified. ttb Assistance ADL's: requires no assistance with activities of daily living. Abuse/DV Screen: The patient / caregiver reports he/she is: not in a situation that causes fear, pain or injury. Nutritional screening: No deficits noted. Advance Directives: Currently, there is no health care proxy. home support is adequate. Assessment: 16:38 General: Appears in no apparent distress, uncomfortable, well nourished, well groomed, ttb Behavior is appropriate for age, cooperative, pleasant. Neurological: Level of Consciousness is awake, alert, Moves all extremities. Gait is steady, Speech is normal, Facial symmetry appears normal, Reports dizziness. Respiratory: No deficits noted. Airway is patent. GI: Reports nausea, vomiting. Derm: Skin is normal. Vital Signs: 15:44 BP 111 / 74; Pulse 92; Resp 18 S; Temp 97.1(O); Pulse Ox 99% on R/A; Weight 78.02 kg gr2 (R); Height 5 ft. 4 in. (162.56 cm) (R); Pain 2/10; 15:44 Body Mass Index 29.52 (78.02 kg, 162.56 cm) gr2 Vitals: 15:44 Log In Time: October 19, 2016 at 15:44. gr2 ED Course: 15:44 Patient visited by Bibiana Blanc. gr2 15:44 Radha [facility] [place] [place] is Private Physician. gr2 15:44 NO PRIMARY PHYSICIAN, . is Private Physician. gr2 15:44 Patient moved to Waiting gr2 15:46 Patient visited by Bibiana Blanc. gr2 15:46 Patient moved to Pre RCE gr2 15:49 Patient visited by Bibiana Blanc. gr2 15:50 Triage Initiated ld5 15:52 Patient visited by Cate Mckeon RN. ld5 16:02 Patient moved to Triage 3 ttb 16:05 Randy Goode PA is PHCP. btw 16:05 Chandrika Pena MD is Attending Physician. btw 16:05 Patient visited by Randy Goode PA. btw 16:31 Kristine Anderson MD is Referral Physician. btw 16:38 The patient / caregiver is instructed regarding the plan of care and ED course. Patient ttb has correct armband on for positive identification. 16:38 No IV's were initiated during this patient's visit. No procedures done that require ttb assistance. 16:54 [facility] Payment Agreement was scanned into [employer] and attached to record. gjb 17:02 Patient name changed from Rosibel\\S\\\\S\\Benthal\\S\\ to Rosibel\\S\\ \\S\\Benthal. EDMS 10/20 09:15 T-Sheet-- Draft Copy was scanned into [employer] and attached to record. gb Order Results: There are currently no results for this order. Outcome: 10/19 16:32 Discharge ordered by Provider. btw 16:38 Discharge Assessment: Patient awake, alert and oriented x 3. No cognitive and/or ttb functional deficits noted. Patient verbalized understanding of disposition instructions. Patient awake and alert. patient administered narcotics - no. The following High Risk Discharge criteria are identified: None. Discharged to home ambulatory. Condition: stable Condition: improved. Discharge instructions given to patient, Instructed on discharge instructions, follow up and referral plans. medication usage, Demonstrated understanding of instructions, medications, Pt was receptive of discharge instructions/ teaching. Prescriptions given X 2. No special radiology studies were completed. Property :Personal belongings accompany Pt. 16:39 Patient left the ED. ttb Signatures: [facility] Shandra Finley, Davy Reg gb Randy Goode PA PA btw Cate Mckeon RN RN ld5 Pepper Hancock RN RN ttb Bibiana Blanc gr2 Vivian Santiago Corrections: (The following items were deleted from the chart) 15:50 15:48 Presenting complaint: Patient states: Was at [facility] for regular visit today. Was ld5 discussing symptoms she was having with MD and was told to come to ER as soon as possible to be checked for vertigo. Pt reports dizziness, vomiting, "I feel intoxicated", and pressure to forehead since Saturday ld5 Chart Complete MTDD
--- NOTE | 2016-10-21 17:40 | EDDOCDS ---
Physician Documentation [facility] Name: Rosibel Jackson Age: 31 yrs Sex: Female : 1985 Arrival Date: 10/19/2016 Time: 15:42 Bed Triage 3 Private MD: NO PRIMARY PHYSICIAN, . Disposition: 10/19/16 16:32 Discharged to Home/Self Care. Impression: Labyrinthitis, bilateral, Acute serous otitis media, bilateral. - Condition is Stable. - Discharge Instructions: Serous Otitis Media, Labyrinthitis, [id number]. - Prescriptions for Medrol (Arturo) 4 mg Oral Tablets, Dose Pack - take 1 Pack by ORAL route as directed - follow package instructions; 1 packet. azelastine 137 mcg (0.1 %) Nasal Aerosol, [place] - spray 2 spray by INTRANASAL route 2 times per day each nostril; 1 bottle. - Medication Reconciliation, Local Pharmacy Hours form. - Follow up: Kristine Anderson MD; When: Call to arrange an appointment; Reason: Further diagnostic work-up, Recheck today's complaints, Continuance of care. - Problem is new. - Symptoms are unchanged. Historical: - Allergies: PENICILLINS; - Home Meds: 1. none - PMHx: none; - PSHx: Cholecystectomy; Appendectomy; - Social history: Smoking status: Patient states former smoker of tobacco. No barriers to communication noted, The patient speaks fluent German, Speaks appropriately for age. - Family history: Not pertinent. - : The pt / caregiver states he / she is not on anticoagulants. Home medication list is obtained from the patient. - Exposure Risk Screening:: None identified. 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 4 in. (162.56 cm) (R); Pain 2/10; 15:44 Body Mass Index 29.52 (78.02 kg, 162.56 cm) gr2 MDM: 16:54 [facility] Payment Agreement was scanned into [employer] and attached to record. gjb 16:54 Financial registration complete. [facility] 10/20 09:15 T-Sheet-- Draft Copy was scanned into [employer] and attached to record. gb Signatures: Shandra Finley, Reg Reg Ranyd Frederick, Cate EnglandRN RN ld5 Pepper Hancock RN RN Vivian Duarte The chart was reviewed and I authenticate all verbal orders and agree with the evaluation and treatment provided.Attachments: 10/19 16:54 [facility] Payment Agreement [facility] 10/20 09:15 T-Sheet-- Draft Copy gb Chart Complete MTDD
--- NOTE | 2016-10-21 17:40 | EDDOCDS ---
Physician Documentation [facility] Name: Rosibel Jackson Age: 31 yrs Sex: Female : 1985 Arrival Date: 10/19/2016 Time: 15:42 Bed Triage 3 Private MD: NO PRIMARY PHYSICIAN, . Disposition: 10/19/16 16:32 Discharged to Home/Self Care. Impression: Labyrinthitis, bilateral, Acute serous otitis media, bilateral. - Condition is Stable. - Discharge Instructions: Serous Otitis Media, Labyrinthitis, [id number]. - Prescriptions for Medrol (Arturo) 4 mg Oral Tablets, Dose Pack - take 1 Pack by ORAL route as directed - follow package instructions; 1 packet. azelastine 137 mcg (0.1 %) Nasal Aerosol, [place] - spray 2 spray by INTRANASAL route 2 times per day each nostril; 1 bottle. - Medication Reconciliation, Local Pharmacy Hours form. - Follow up: Kristine Anderson MD; When: Call to arrange an appointment; Reason: Further diagnostic work-up, Recheck today's complaints, Continuance of care. - Problem is new. - Symptoms are unchanged. Historical: - Allergies: PENICILLINS; - Home Meds: 1. none - PMHx: none; - PSHx: Cholecystectomy; Appendectomy; - Social history: Smoking status: Patient states former smoker of tobacco. No barriers to communication noted, The patient speaks fluent Japanese, Speaks appropriately for age. - Family history: Not pertinent. - : The pt / caregiver states he / she is not on anticoagulants. Home medication list is obtained from the patient. - Exposure Risk Screening:: None identified. RECOVERY AGENT: 10/19 15:51 LMP N/A - control method, Mirena placed September 06, has had period since then ld5 Vital Signs: 15:44 BP 111 / 74; Pulse 92; Resp 18 S; Temp 97.1(O); Pulse Ox 99% on R/A; Weight 78.02 kg / gr2 172 lbs (R); Height 5 ft. 4 in. (162.56 cm) (R); Pain 2/10; 15:44 Body Mass Index 29.52 (78.02 kg, 162.56 cm) gr2 MDM: 16:54 [facility] Payment Agreement was scanned into [employer] and attached to record. gjb 16:54 Financial registration complete. [facility] 10/20 09:15 T-Sheet-- Draft Copy was scanned into [employer] and attached to record. gb Signatures: Shandra Finley, Reg Reg Randy Frederick, Cate EnglandRN RN ld5 Pepper Hancock RN RN Vivian Duarte The chart was reviewed and I authenticate all verbal orders and agree with the evaluation and treatment provided.Attachments: 10/19 16:54 [facility] Payment Agreement [facility] 10/20 09:15 T-Sheet-- Draft Copy gb Chart Complete MTDD
== END 2016-10-19 16:39 | disposition home or self-care (01) ==
LOC: M ED 15:42
DX: H83.03 Labyrinthitis, bilateral (principal); Z87.891 Personal history of nicotine dependence; Z88.0 Allergy status to penicillin

== ENCOUNTER → 2016-10-19 | Outpatient (REF) | payer BC | END | disposition home or self-care (01) | LOC: M LAB REF 16:49 | PROVIDERS: ATTEND Obstetrics & Gynecology | DX: Z01.419 Encounter for gynecological examination (general) (routine) without abnormal findings (principal); Z11.51 Encounter for screening for human papillomavirus (HPV) ==

== ENCOUNTER → 2017-01-03 | Outpatient (CLI) | payer BC ==
[~2017-01-03] MED LIST changes: -COLA100C PO; +COLA100C3 PO
--- NOTE | 2017-01-04 03:31 | REP ---
Clinical: Left lower quadrant pain and IUD positioning. Technique: Transabdominal pelvic ultrasound followed by transvaginal examination for better evaluation of the endometrium and adnexa with color Doppler evaluation of the ovaries. Findings: Bladder is unremarkable and measures 7.9 x 7.2 x 6.5 cm . Anteverted uterus measures 9.7 x 3.5 x 4.0 cm, and has a somewhat bicornuate/subseptate contour. The endometrial complex measures 4 mm thickness. No discrete uterine or endometrial abnormalities are appreciated. IUD identified in satisfactory position. Bilateral ovaries are normal in appearance and vascularity without evidence for torsion. Right ovary measures 4.1 x 3.2 x 2.9 cm ; R I = 0.59 . Left ovary measures 5.9 x 4.1 x 4.6 cm with 4.3 cm cyst ; R I = 0.62 . No pelvic fluid or adnexal mass lesion . Impression: 1. 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 IUD in satisfactory position. 2. 4.3 cm left ovarian cyst likely physiologic. Consider follow-up in 4-6 weeks to evaluate for resolution. Signed by Prosper Bain MD 01/04/2017 03:23 A
== END ==
LOC: M SMT 07:48
PROVIDERS: ATTEND Advanced Practice Midwife
DX: R10.32 Left lower quadrant pain (principal); Z97.5 Presence of (intrauterine) contraceptive device; N83.202 Unspecified ovarian cyst, left side

== ENCOUNTER 2017-08-10 17:53 | Emergency (ER) | payer BC, MEDICAID ==
[~2017-08-10] VITALS: Ht 162.6 cm; Wt 81.8 kg
[~2017-08-10 17:53] MED LIST changes: -COLA100C3 PO; +COLA100C5 PO
[2017-08-10] MEDS ORDERED: KETOROLAC 60 MG/2 ML VIAL (J1885) IM ONE (19:30)
[2017-08-10 19:45] LABS: MUCUS, URINE RFX SMALL (NEGATIVE); SPECIFIC GRAVITY UR AUTO RFX 1.026 (1.002-1.035); SQUAM EPITHELIAL CELL UR AURFX 3 /HPF (0-6)
[2017-08-10] MEDS ORDERED: PYRI1TAB5 PO (19:53)
[2017-08-10] MEDS ORDERED: IBUP-1022 PO (19:53)
[2017-08-10] MEDS ORDERED: MACR100C43 PO (19:53)
[2017-08-10] MEDS ORDERED: PHENAZOPYRIDINE 100 MG TAB PO ONE (20:00)
[2017-08-10] MEDS ORDERED: NITROFURANTOIN (MACROBID) 100 MG CAP PO ONE (20:00)
[2017-08-10 20:06] VITALS: BP 115/69
== END 2017-08-10 20:10 | disposition home or self-care (01) ==
LOC: M ED 17:53
DX: N39.0 Urinary tract infection, site not specified (principal); R51 Headache; Z88.0 Allergy status to penicillin; Z98.890 Other specified postprocedural states
CPT/HCPCS: 81001; 81025; 87086; 96372; 99284; J1885

== ENCOUNTER 2017-10-02 10:17 | Emergency (ER) | payer BC, MEDICAID | END 2017-10-02 11:09 | disposition home or self-care (01) | LOC: M ED 10:17 | DX: M65.842 Other synovitis and tenosynovitis, left hand (principal); F12.10 Cannabis abuse, uncomplicated; Z87.891 Personal history of nicotine dependence | CPT/HCPCS: 99283 ==